=== PATIENT | male | born 1950 | race Caucasian/White ===

== ENCOUNTER → 2016-07-16 | Outpatient (CLI) | payer OTHER ==
[~2016-07-16] MED LIST: AMITRIPTYLINE H75 MG PO; ASPIRIN325 MG PO; DEXILANT60 MG PO; IRON325 M1 PO; LORATADINE10 M2 PO; LYRICA50 MG PO; MOTRIN600 MG PO; OXYCONTIN30 MG PO; RAPAFLO8 MG PO; VALIUM10 MG PO
== END | disposition home or self-care (01) ==
DX: M16.11 Unilateral primary osteoarthritis, right hip (principal); M25.551 Pain in right hip; M25.651 Stiffness of right hip, not elsewhere classified; R26.2 Difficulty in walking, not elsewhere classified; M62.89 Other specified disorders of muscle
CPT/HCPCS: 97110 GP; 97150 GO; 97161 GP; 97165 GO; G8978 GP; G8979 GP; G8980 GP; G8987 GO; G8988 GO; G8989 GO

== ENCOUNTER 2016-07-30 05:27 | Inpatient (IN) | payer OTHER ==
[~2016-07-30] VITALS: Ht 175.3 cm; Wt 121.6 kg
[2016-07-30 06:10] VITALS: BP 176/98
[2016-07-30 06:20] LABS: POINT-OF-CARE METER ID UU14174212
[2016-07-30 10:33] LABS: POINT-OF-CARE METER ID UU13113675
[2016-07-30 11:40] VITALS: BP 156/90
[2016-07-30 11:52] LABS: HEMATOCRIT 41.1 % (38.0-50.0); MCH 29.7 PG (29.0-34.0); MCHC 33.3 G/DL (30.0-36.0); MCV 89.2 FL (86-99); MEAN PLAT.VOLUME 10.4 uM^3 (9.0-12.4); PLATELET COUNT 149 K/uL (156-360); RBC DIS.WIDTH-CV 13.6 % (11.8-14.6); RBC DIS.WIDTH-SD 43.9 % (39-53); RED BLOOD COUNT 4.61 M/uL (4.00-5.50); WHITE BLOOD COUNT 5.6 K/uL (4.1-10.2)
[2016-07-30 15:42] VITALS: BP 146/84
[2016-07-30 19:23] VITALS: BP 160/98
[2016-07-31] VITALS (7 sets, daily range): BP systolic 105–186; BP diastolic 52–125
[2016-07-31 05:11] LABS: HEMATOCRIT 38.1 % (38.0-50.0); MCV 88.8 FL (86-99)
[2016-07-31 05:35] LABS: ANION GAP 11 MEQ/L (2-14); CHLORIDE 95 MEQ/L (99-109); GFR ESTIMATE (CALCULATED) 46 mL/min/; GLUCOSE 177 mg/dL (70-99); POTASSIUM 4.2 MEQ/L (3.7-5.4); SAMPLE HEMOLYSIS CHECK 0; SAMPLE ICTERIC CHECK 0; SAMPLE LIPEMIA CHECK 0; SODIUM 131 MEQ/L (136-147); UREA NITROGEN (BUN) 17 mg/dL (9-23)
[2016-07-31 14:49] LABS: ANION GAP 10 MEQ/L (2-14); CHLORIDE 95 MEQ/L (99-109); GFR ESTIMATE (CALCULATED) 38 mL/min/; GLUCOSE 205 mg/dL (70-99); POTASSIUM 4.4 MEQ/L (3.7-5.4); SAMPLE HEMOLYSIS CHECK 0; SAMPLE ICTERIC CHECK 0; SAMPLE LIPEMIA CHECK 0; SODIUM 132 MEQ/L (136-147); UREA NITROGEN (BUN) 23 mg/dL (9-23)
[2016-08-01] VITALS (9 sets, daily range): BP systolic 32–157; BP diastolic 73–89
[2016-08-01 05:31] LABS: HEMATOCRIT 35.2 % (38.0-50.0); MCV 88.4 FL (86-99)
[2016-08-01 06:41] LABS: ANION GAP 10 MEQ/L (2-14); CHLORIDE 96 MEQ/L (99-109); GFR ESTIMATE (CALCULATED) 40 mL/min/; GLUCOSE 157 mg/dL (70-99); POTASSIUM 4.2 MEQ/L (3.7-5.4); SAMPLE HEMOLYSIS CHECK 0; SAMPLE ICTERIC CHECK 0; SAMPLE LIPEMIA CHECK 0; SODIUM 132 MEQ/L (136-147); UREA NITROGEN (BUN) 27 mg/dL (9-23)
[2016-08-01 08:33] LABS: POINT-OF-CARE METER ID UU13113720
[2016-08-01 09:16] LABS: ANION GAP 9 MEQ/L (2-14); CHLORIDE 97 MEQ/L (99-109); POTASSIUM 4.2 MEQ/L (3.7-5.4); SAMPLE HEMOLYSIS CHECK 0; SAMPLE ICTERIC CHECK 0; SAMPLE LIPEMIA CHECK 0; SODIUM 133 MEQ/L (136-147)
[2016-08-01 09:21] LABS: GFR ESTIMATE (CALCULATED) 40 mL/min/; GLUCOSE 161 mg/dL (70-99); UREA NITROGEN (BUN) 26 mg/dL (9-23)
[2016-08-01 09:44] LABS: EOSINOPHIL (%) 0.2 % (0-5); IMMATURE GRANULOCYTE (%) 0.1 % (0.0-0.7); MCH 30.2 PG (29.0-34.0); MEAN PLAT.VOLUME 10.8 uM^3 (9.0-12.4); MONOCYTE (%) 11.7 % (3-12); NEUTROPHIL COUNT 5.6 K/uL (1.8-6.4); PLATELET COUNT 152 K/uL (156-360); RBC DIS.WIDTH-CV 13.5 % (11.8-14.6); RED BLOOD COUNT 3.87 M/uL (4.00-5.50)
[2016-08-01 10:00] LABS: ADD MIUA? YES; BILIRUBIN NEGATIVE; BLOOD MODERATE; COLOR YELLOW ((YELLOW)); GLUCOSE (STRIP) NEGATIVE; KETONES NEGATIVE; LEUKOCYTES NEGATIVE; NITRITE NEGATIVE; PROTEIN (STRIP) >=300; SPECIFIC GRAVITY 1.017 (1.000-1.030); UROBILINOGEN 0.2 MG/DL (0.2-1.0)
[2016-08-01 10:15] LABS: WHITE BLOOD COUNT 8.6 K/uL (4.1-10.2)
[2016-08-01 10:30] LABS: BACTERIA NONE SEEN /HPF; CASTS NONE SEEN /LPF; CRYSTALS NONE SEEN; EPITHELIAL CELLS RARE /HPF; MUCUS RARE /LPF; RED BLOOD CELLS 0-5 /HPF (0-5); UCUL ADDED? NO; WHITE BLOOD CELLS NONE SEEN /HPF (0-5)
[2016-08-01 13:57] LABS: D-DIMER ELISA 1.07 mg/L FEU (< 0.57); INTER. NORMALIZED RATIO 1.1
[2016-08-01 14:54] LABS: TROP-I INTERPRETATION NEGATIVE; TROPONIN-I 0.01 ng/mL (0.0-0.30)
[2016-08-01 18:58] LABS: HEMATOCRIT 32.4 % (38.0-50.0); MCH 30.7 PG (29.0-34.0); MCHC 34.9 G/DL (30.0-36.0); MEAN PLAT.VOLUME 10.3 uM^3 (9.0-12.4); PLATELET COUNT 160 K/uL (156-360); RBC DIS.WIDTH-CV 12.8 % (11.8-14.6); RBC DIS.WIDTH-SD 40.1 % (39-53); RED BLOOD COUNT 3.68 M/uL (4.00-5.50); WHITE BLOOD COUNT 7.8 K/uL (4.1-10.2)
[2016-08-01 19:06] LABS: CHLORIDE 102 mEq/L (99-109); POTASSIUM 4.2 mEq/L (3.7-5.4); SODIUM 135 mEq/L (136-147)
[2016-08-01 19:08] LABS: GLUCOSE 199 mg/dL (70-99)
[2016-08-01 19:09] LABS: ANION GAP 10 MEQ/L (2-14)
[2016-08-01 19:12] LABS: GFR ESTIMATE (CALCULATED) 40 mL/min/
[2016-08-01 19:13] LABS: UREA NITROGEN (BUN) 25 mg/dL (9-23)
[2016-08-01 20:17] LABS: INFLUENZA A VIRAL ANTIGEN POSITIVE
[2016-08-01 20:18] LABS: INFLUENZA B VIRAL ANTIGEN NEGATIVE
[2016-08-01 21:49] LABS: METH RESISTANT S AUREUS PCR NEGATIVE (NEGATIVE)
[2016-08-01 21:54] LABS: PROBE CHECK PASS; SPECIMEN PROCESSING CONTROL PASS
[2016-08-02] VITALS (9 sets, daily range): BP systolic 104–171; BP diastolic 70–94
[2016-08-02 05:52] LABS: EOSINOPHIL (%) 1.8 % (0-5); EOSINOPHIL COUNT 0.1 K/uL (0-0.3); HEMATOCRIT 31.9 % (38.0-50.0); IMMATURE GRANULOCYTE (%) 0.3 % (0.0-0.7); LYMPHOCYTE COUNT 1.4 K/uL (1.0-2.8); MCH 30.5 PG (29.0-34.0); MCHC 33.5 G/DL (30.0-36.0); MCV 90.9 FL (86-99); MEAN PLAT.VOLUME 10.9 uM^3 (9.0-12.4); MONOCYTE (%) 10.1 % (3-12); MONOCYTE COUNT 0.7 K/uL (0-0.8); NEUTROPHIL (%) 66.4 % (45-76); NEUTROPHIL COUNT 4.5 K/uL (1.8-6.4); PLATELET COUNT 150 K/uL (156-360); RBC DIS.WIDTH-CV 13.4 % (11.8-14.6); RBC DIS.WIDTH-SD 44.5 % (39-53); RED BLOOD COUNT 3.51 M/uL (4.00-5.50); WHITE BLOOD COUNT 6.7 K/uL (4.1-10.2)
[2016-08-02 06:33] LABS: ALKALINE PHOSPHATASE 38 IU/L (3-129); ANION GAP 10 MEQ/L (2-14); CHLORIDE 106 MEQ/L (99-109); GFR ESTIMATE (CALCULATED) 50 mL/min/; POTASSIUM 4.4 MEQ/L (3.7-5.4); SAMPLE HEMOLYSIS CHECK 0; SAMPLE ICTERIC CHECK 0; SAMPLE LIPEMIA CHECK 0; SODIUM 141 MEQ/L (136-147); TOTAL BILIRUBIN 0.5 MG/DL (0.0-1.0); UREA NITROGEN (BUN) 21 mg/dL (9-23)
[2016-08-02 06:34] LABS: GLUCOSE 115 mg/dL (70-99)
[2016-08-02 11:44] LABS: ADD MIUA? YES; BILIRUBIN NEGATIVE; BLOOD SMALL; COLOR YELLOW ((YELLOW)); GLUCOSE (STRIP) NEGATIVE; KETONES NEGATIVE; LEUKOCYTES NEGATIVE; NITRITE NEGATIVE; PH, URINE 5.5 (5-8); PROTEIN (STRIP) 100; UROBILINOGEN 0.2 MG/DL (0.2-1.0)
[2016-08-02 11:57] LABS: BACTERIA NONE SEEN /HPF; CASTS NONE SEEN /LPF; CRYSTALS NONE SEEN; EPITHELIAL CELLS RARE /HPF; MUCUS NONE SEEN /LPF; PATHOLOGICAL CAST NONE SEEN; RED BLOOD CELLS 0-5 /HPF (0-5); SMALL ROUND CELL NONE SEEN; UCUL ADDED? NO; WHITE BLOOD CELLS 0-5 /HPF (0-5); YEAST-LIKE CELL NONE SEEN
[2016-08-03 00:04] VITALS: BP 128/66
[2016-08-03 04:34] VITALS: BP 128/62
[2016-08-03 05:58] LABS: HEMATOCRIT 29.7 % (38.0-50.0); MCH 30.7 PG (29.0-34.0); MCHC 33.7 G/DL (30.0-36.0); MCV 91.1 FL (86-99); RBC DIS.WIDTH-CV 13.3 % (11.8-14.6); RBC DIS.WIDTH-SD 44.5 % (39-53); RED BLOOD COUNT 3.26 M/uL (4.00-5.50); WHITE BLOOD COUNT 6.5 K/uL (4.1-10.2)
[2016-08-03 06:16] LABS: MEAN PLAT.VOLUME 10.5 uM^3 (9.0-12.4)
[2016-08-03 06:21] LABS: PLATELET COUNT 198 K/uL (156-360)
[2016-08-03 06:26] LABS: ANION GAP 7 MEQ/L (2-14); CHLORIDE 103 MEQ/L (99-109); GFR ESTIMATE (CALCULATED) 54 mL/min/; GLUCOSE 116 mg/dL (70-99); POTASSIUM 3.9 MEQ/L (3.7-5.4); SAMPLE HEMOLYSIS CHECK 0; SAMPLE ICTERIC CHECK 0; SAMPLE LIPEMIA CHECK 0; SODIUM 137 MEQ/L (136-147); UREA NITROGEN (BUN) 16 mg/dL (9-23)
[2016-08-03 07:17] VITALS: BP 138/80
[2016-08-03 11:50] VITALS: BP 131/83
[2016-08-03] MEDS ORDERED: AMOX TR-K CLV1 EAC4 PO (14:35)
[2016-08-03] MEDS ORDERED: OSELTAMIVIR PHO30 MG PO (14:36)
[2016-08-03] MEDS ORDERED: AMLODIPINE BESYL5 MG PO (14:37)
[2016-08-03] MEDS ORDERED: LOSARTAN POTASS50 MG PO (14:37)
[2016-08-03] MEDS ORDERED: HYDROCODON-ACE1 EAC7 PO (14:38)
[2016-08-03] MEDS ORDERED: ACIDOPHILUS LA1 EACH PO (14:39)
[2016-08-03] MEDS ORDERED: ACIDOPHILUS1 EAC3 PO (19:13)
[2016-08-03] MEDS ORDERED: ZOSYN 3.373.375 GM/5 IV (19:14)
[2016-08-03] MEDS ORDERED: TAMIFLU30 MG PO (19:16)
[2016-08-03] MEDS ORDERED: ZITHROMAX500 MG PO (19:19)
[2016-08-03] MEDS ORDERED: PROTONIX40 MG PO (19:20)
[2016-08-03] MEDS ORDERED: LOVENOX40 MG/0.4 SC (19:20)
[2016-08-03] MEDS ORDERED: CATAPRES0.1 MG PO (19:21)
[2016-08-03] MEDS ORDERED: SENOKOT S,PE1 TABLET PO (19:22)
[2016-08-03] MEDS ORDERED: PERCOCET 10/1 TABLET PO (19:24)
[2016-08-03] MEDS ORDERED: PERCOCET 5/31 TABLET PO (19:24)
[2016-08-03] MEDS ORDERED: LIDODERM 5% P1 PATCH TD (19:25)
[2016-08-03] MEDS ORDERED: DILAUDID1 MG/ML IV ×2 (19:28→19:29)
[2016-08-03] MEDS ORDERED: NORCO 10/3251 TABLET PO (19:30)
== END 2016-08-03 16:25 | DRG 469 ==
LOC: 2SOUTH 05:27 → 4EAST 05:27 → 3EAST 05:27 → 3WEST 05:27 → 2SOUTH 10:24 → 3WEST 11:28 → 2SOUTH 11:57 → 3WEST 08-01 09:39 → 3EAST 08-01 18:01 → 4WEST 08-01 19:50 → 4EAST 08-02 20:54
PROVIDERS: Hospitalist; Nurse Practitioner Adult Health; Obstetrics & Gynecology; Orthopaedic Surgery; Physician Assistant
PROC: 5A09357 Assistance with Respiratory Ventilation, Less than 24 Consecutive Hours, Continuous Positive Airway Pressure (ICD-10-PCS; principal; 2016-07-30)
PROC: 0SR902A Replacement of Right Hip Joint with Metal on Polyethylene Synthetic Substitute, Uncemented, Open Approach (ICD-10-PCS; principal; 2016-07-30)
DX: M16.11 Unilateral primary osteoarthritis, right hip (principal); A41.89 Other specified sepsis; J10.1 Influenza due to other identified influenza virus with other respiratory manifestations; E87.1 Hypo-osmolality and hyponatremia; J98.11 Atelectasis; N17.9 Acute kidney failure, unspecified; M24.051 Loose body in right hip; M21.751 Unequal limb length (acquired), right femur; I25.10 Atherosclerotic heart disease of native coronary artery without angina pectoris; G47.33 Obstructive sleep apnea (adult) (pediatric); K21.9 Gastro-esophageal reflux disease without esophagitis; N40.1 Benign prostatic hyperplasia with lower urinary tract symptoms; R35.1 Nocturia; I25.2 Old myocardial infarction; G43.909 Migraine, unspecified, not intractable, without status migrainosus; E66.9 Obesity, unspecified; Z68.36 Body mass index [BMI] 36.0-36.9, adult; Z87.891 Personal history of nicotine dependence; Z86.73 Personal history of transient ischemic attack (TIA), and cerebral infarction without residual deficits
CPT/HCPCS: 70450; 71010; 71020; 73501; 73502; 78582; 80048; 80048 91; 80053; 81003; 82948; 83605; 84484; 85014; 85018; 85025; 85027; 85379; 85610; 87040; 87502; 87641; 93005; 93970; 94010; 94640; 94640 76; 94799; 97530 GP; 99202; A9540; A9567; J0330; J0690; J1170; J1650; J2250; J2405; J2543; J3010; J3370; J7030; J7050

== ENCOUNTER 2016-08-03 14:46 | Inpatient (IN) | payer OTHER ==
[~2016-08-03] VITALS: Ht 175.3 cm; Wt 121.0 kg
[~2016-08-03 14:46] MED LIST changes: +ACIDOPHILUS LA1 EACH PO; +AMLODIPINE BESYL5 MG PO; +AMOX TR-K CLV1 EAC4 PO; +HYDROCODON-ACE1 EAC7 PO; +LOSARTAN POTASS50 MG PO; +OSELTAMIVIR PHO30 MG PO
[2016-08-03 16:40] VITALS: BP 144/76
[2016-08-03] MEDS ORDERED: ACIDOPHILUS1 EAC3 PO (19:13)
[2016-08-03] MEDS ORDERED: ZOSYN 3.373.375 GM/5 IV (19:14)
[2016-08-03] MEDS ORDERED: TAMIFLU30 MG PO (19:16)
[2016-08-03] MEDS ORDERED: ZITHROMAX500 MG PO (19:19)
[2016-08-03] MEDS ORDERED: LOVENOX40 MG/0.4 SC (19:20)
[2016-08-03] MEDS ORDERED: PROTONIX40 MG PO (19:20)
[2016-08-03] MEDS ORDERED: CATAPRES0.1 MG PO (19:21)
[2016-08-03] MEDS ORDERED: SENOKOT S,PE1 TABLET PO (19:22)
[2016-08-03] MEDS ORDERED: PERCOCET 5/31 TABLET PO (19:24)
[2016-08-03] MEDS ORDERED: PERCOCET 10/1 TABLET PO (19:24)
[2016-08-03] MEDS ORDERED: LIDODERM 5% P1 PATCH TD (19:25)
[2016-08-03] MEDS ORDERED: DILAUDID1 MG/ML IV ×2 (19:28→19:29)
[2016-08-03] MEDS ORDERED: NORCO 10/3251 TABLET PO (19:30)
[2016-08-03 22:55] VITALS: BP 150/80
[2016-08-04 04:53] LABS: HEMATOCRIT 32.4 % (38.0-50.0); MCH 29.8 PG (29.0-34.0); MCV 87.8 FL (86-99); RBC DIS.WIDTH-CV 12.6 % (11.8-14.6); RBC DIS.WIDTH-SD 39.4 % (39-53); RED BLOOD COUNT 3.69 M/uL (4.00-5.50); WHITE BLOOD COUNT 6.8 K/uL (4.1-10.2)
[2016-08-04 05:01] LABS: MEAN PLAT.VOLUME 10.1 uM^3 (9.0-12.4)
[2016-08-04 05:02] LABS: PLATELET COUNT 281 K/uL (156-360)
[2016-08-04 05:11] LABS: CHLORIDE 105 mEq/L (99-109); POTASSIUM 3.9 mEq/L (3.7-5.4); SODIUM 143 mEq/L (136-147)
[2016-08-04 05:13] LABS: GLUCOSE 135 mg/dL (70-99)
[2016-08-04 05:15] LABS: ANION GAP 10 MEQ/L (2-14); TOTAL BILIRUBIN 0.5 mg/dL (0.0-1.0)
[2016-08-04 05:17] LABS: ALKALINE PHOSPHATASE 52 IU/L (3-129); GFR ESTIMATE (CALCULATED) 54 mL/min/
[2016-08-04 05:18] LABS: UREA NITROGEN (BUN) 18 mg/dL (9-23)
[2016-08-04 05:43] VITALS: BP 145/85
[2016-08-04 15:36] VITALS: BP 138/81
[2016-08-05 05:40] VITALS: BP 140/76
[2016-08-05] MEDS ORDERED: AMOX TR-K CLV1 EAC4 PO (12:48)
[2016-08-05] MEDS ORDERED: OSELTAMIVIR PHO30 MG PO (12:48)
[2016-08-05] MEDS ORDERED: HYDROCODON-ACE1 EAC7 PO (12:48)
[2016-08-05] MEDS ORDERED: SODIUM CHLORIDE1 G1 PO (12:48)
[2016-08-05] MEDS ORDERED: SENOKOT S,PE1 TABLET PO (12:48)
[2016-08-05] MEDS ORDERED: FOLIC ACID1 MG PO (12:48)
[2016-08-05] MEDS ORDERED: DOCUSATE SODIU100 MG PO (12:48)
[2016-08-05] MEDS ORDERED: ASCORBIC ACID500 M3 PO (12:48)
[2016-08-05] MEDS ORDERED: LOVENOX40 MG/0.4 SC (12:48)
[2016-08-05] MEDS ORDERED: THERAGRAN1 TABLET PO (12:48)
== END 2016-08-05 14:35 | disposition home health service (06) | DRG 559 ==
LOC: 3WEST 14:46
PROVIDERS: Physical Medicine & Rehabilitation Pain Medicine
PROC: F07M0ZZ Range of Motion and Joint Mobility Treatment of Musculoskeletal System - Whole Body (ICD-10-PCS; principal; 2016-08-03)
DX: Z47.1 Aftercare following joint replacement surgery (principal); A41.89 Other specified sepsis; N17.9 Acute kidney failure, unspecified; Z96.641 Presence of right artificial hip joint; R26.2 Difficulty in walking, not elsewhere classified; G89.18 Other acute postprocedural pain; M25.551 Pain in right hip; N39.0 Urinary tract infection, site not specified; E87.1 Hypo-osmolality and hyponatremia; D62 Acute posthemorrhagic anemia; E83.52 Hypercalcemia; J10.1 Influenza due to other identified influenza virus with other respiratory manifestations; I25.10 Atherosclerotic heart disease of native coronary artery without angina pectoris; I25.2 Old myocardial infarction; G47.33 Obstructive sleep apnea (adult) (pediatric); K21.9 Gastro-esophageal reflux disease without esophagitis; N40.0 Benign prostatic hyperplasia without lower urinary tract symptoms; I10 Essential (primary) hypertension; E66.9 Obesity, unspecified; Z68.39 Body mass index [BMI] 39.0-39.9, adult; J30.2 Other seasonal allergic rhinitis; M51.16 Intervertebral disc disorders with radiculopathy, lumbar region; M16.11 Unilateral primary osteoarthritis, right hip; M24.051 Loose body in right hip; E88.09 Other disorders of plasma-protein metabolism, not elsewhere classified; E78.1 Pure hyperglyceridemia; D69.6 Thrombocytopenia, unspecified; Z96.651 Presence of right artificial knee joint; Z87.891 Personal history of nicotine dependence
CPT/HCPCS: 80053; 85027; 97110 GO; 97530 GP; J1650